=== PATIENT | male | born 1985 | race Caucasian/White ===

== ENCOUNTER 2023-05-27 08:18 | Emergency (ER) | payer OTHER, SELFPAY ==
[2023-05-27 08:35] VITALS: BP 142/87; PULSE 76; RESP 16; TEMP 36.6; O2SAT 100
[2023-05-27 08:36] VITALS: BP 142/87; PULSE 76; RESP 16; TEMP 36.6; O2SAT 100
--- NOTE | 2023-05-27 08:40 | ED.GENADULT ---
HPI - General Adult General Chief complaint: Extremity Injury, Lower Stated complaint: Right Foot Pain Source: patient Mode of arrival: ambulatory Limitations: no limitations History of Present Illness HPI narrative: 37 y/o male presented for c/o right 2nd toe infection. States it started with pain 2 days ago while walking in [place]. Pain increased last night, so he attempted to drain a pocket of fluid last night from the medial aspect of the toe. Used a sterilized safety pin to break the skin and squeezed out thick white drainage. Endorses more swelling to the base of the right 2nd toe today. Pain is significantly improved. Denies any other skin complaints or concerns. Related Data Allergies Allergy/AdvReac Type Severity Reaction Status Date / Time No Known Allergies Allergy Verified 05/27/23 08:36 Review of Systems Review of Systems: CONSTITUTIONAL: Denies body aches, fever, chills, or sweats. EYES: Denies visual changes, redness, or discharge. ENT: Denies rhinorrhea, congestion CARDIOVASCULAR: Denies chest pain, palpitations, or edema. RESPIRATORY: Denies cough or dyspnea. GASTROINTESTINAL: Denies abdominal pain, nausea, vomiting, or diarrhea. SKIN: right 2nd toe infection MUSCULOSKELETAL: Denies back pain, joint pain, or myalgia. NEUROLOGIC: Denies headache, numbness, tingling, or weakness. REPLACED BY [facility] Past Medical History Medical History (Updated 05/27/23 @ 08:58 by Roxanne Mayer, MATHEMATICIAN RESEARCH) No pertinent past medical history Comments At time of signature, I have reviewed and agree with nursing past medical, surgical, social and family history unless otherwise noted. Please see nursing chart for further information. There is no relevant family history pertinent to the presenting complaint Exam Narrative: GENERAL: Well-appearing HEAD: Normocephalic, atraumatic. EYES: conjunctivae clear, and EOMI. ENT: Mucous membranes moist. Oropharynx without edema, erythema or lesions. NECK: Supple. No lymphadenopathy CHEST: Clear to auscultation. HEART: Regular rate and rhythm. SKIN: Warm, dry. Right 2nd toe proximal phalanx medial aspect with mild swelling and erythema, puncture site at center; nontender; no active drainage, fluctuance, induration, or streaking. NEURO: Alert and oriented x3. Course Course Emergency Course: Patient is aware of diagnosis, understands and agrees to treatment plan. Anticipatory guidance given. Patient agrees to follow-up as directed and is aware of reasons to seek care at the emergency department. Portions of this record may have been created with voice recognition software Level of Care: Express Care Visit Vital Signs Vital signs: Vital Signs Temperature 98 F 05/27/23 08:35 Pulse Rate 76 05/27/23 08:35 Respiratory Rate 16 05/27/23 08:35 Blood Pressure 142/87 H 05/27/23 08:35 Pulse Oximetry 100 05/27/23 08:35 Oxygen Delivery Room Air 05/27/23 08:35 Temperature 98 F 05/27/23 08:36 Pulse Rate 76 05/27/23 08:36 Respiratory Rate 16 05/27/23 08:36 Blood Pressure 142/87 H 05/27/23 08:36 Pulse Oximetry 100 05/27/23 08:36 Oxygen Delivery Room Air 05/27/23 08:36 Reviewed Medical Decision Making MDM Narrative Medical decision making narrative: Discussed physical exam findings c/w abscess right 2nd toe. Pt drained it last night and reports improvement in pain. No indication for I&D at this time, site appears healing. Will send Rx abx. Advised supportive measures and signs/symptoms to go to the ER. Pt is appropriate for outpt treatment and f/u. Differential Diagnosis Differential Diagnosis: abscess, cellulitis, gout, abrasion, insect bite. Vital Signs Vital Signs: Vital Signs Temperature 98 F 05/27/23 08:35 Pulse Rate 76 05/27/23 08:35 Respiratory Rate 16 05/27/23 08:35 Blood Pressure 142/87 H 05/27/23 08:35 Pulse Oximetry 100 05/27/23 08:35 Oxygen Delivery Room Air 05/27/23 08:35 Temperature 98 F
== END 2023-05-27 09:00 | disposition home or self-care (01) ==
PROVIDERS: Emergency Provider Nurse Practitioner Family
DX: L02.611 Cutaneous abscess of right foot (principal)
CPT/HCPCS: 99203; G0463

== ENCOUNTER 2023-10-17 18:40 | Emergency (ER) | payer OTHER, SELFPAY ==
--- NOTE | 2023-10-17 18:56 | ED.GENADULT ---
HPI - General Adult General Chief complaint: Upper Respiratory Infection Stated complaint: Bodyache, Fever, Cough, Increased Heart Rate Source: patient, RN notes reviewed and old records reviewed Mode of arrival: ambulatory Limitations: no limitations History of Present Illness HPI narrative: 37-year-old male patient presents to [facility] with complaints cough, myalgia, fever this started today. Patient states taking Tylenol with relief. Patient denies chest pain, shortness of breath, weakness, dizziness. Related Data Home Medications Medication Instructions Recorded Confirmed No Home Medications 10/17/23 10/17/23 Allergies Allergy/AdvReac Type Severity Reaction Status Date / Time No Known Allergies Allergy Verified 05/27/23 08:36 Review of Systems Constitutional: Constitutional: Reports no additional constitutional complaints, Reports body ache(s), Reports chills, Denies fatigue, Reports fever(s) and Denies headache(s) Eyes: Eyes: Reports no additional eye complaints and Denies blurry vision ENT: Reports system reviewed and no additional complaints, except as documented, Denies vertigo, Denies dizziness, Denies ear discharge, Denies otalgia, Denies facial pain, Denies headache(s), Denies nasal congestion, Denies nasal discharge, Denies sinus pain, Denies sinus pressure and Denies sore throat Cardiovascular: Cardiovascular: Reports no additional cardiovascular complaints, Denies chest pain, Denies chest pain at rest, Denies rapid heart rate and Denies dyspnea Respiratory: Respiratory: Reports no additional respiratory complaints, Reports chest congestion, Reports cough, Denies pain on inspiration, Denies pain with cough and Denies dyspnea Gastrointestinal: Gastrointestinal: Denies abdominal pain, Denies diarrhea, Denies nausea and Denies vomiting Integumentary/Breasts: Skin/Breast: Denies rash Neurologic: Reports system reviewed and no additional complaints, except as documented, Denies vertigo, Denies dizziness and Denies headache(s) Endocrine: Endocrine: Denies fatigue PMFSH Past Medical History Medical History No pertinent past medical history Comments At the time of my signature, I reviewed and agree with the nursing past medical, surgical, social, and family history. There is no relevant family history pertinent to the patient complaint. Exam Const: General: cooperative, healthy appearing, no acute distress and well nourished Nutritional Appearance: well nourished Orientation/consciousness: patient oriented x3 Limitations: no limitations HENMT: Head: normal to inspection and normocephalic Ears: external ears normal, TM's normal bilaterally, mastoids normal and Abnormal EAC present Face/Nose/Sinus: normal facial exam Face and sinus: normal facial exam Mouth: Yes Normal oral and palatal mucosa present, Yes oropharynx normal and Yes moist mucous membranes Throat: posterior oropharynx normal, tonsils normal, uvula midline and no uvular edema Eyes: General: appearance normal, both eyes and all related structures Sclera: sclerae normal Pupils: Equal, round and reactive pupils present Resp: Effort & Inspection: normal respiratory effort, able to speak in complete sentences, no audible wheezes, no cough, no respiratory distress and no retractions Auscultation: clear to auscultation bilaterally, no crackles, no rales, no rhonchi and no wheezes Cardio: Rate: regular rate Rhythm: regular rhythm Skin: General skin exam: normal color and no rashes or lesions noted Neuro: General: patient oriented x3 Cranial nerves: Yes Equal, round and reactive pupils present Psych: Appearance: grossly normal Mental Status: mental status grossly normal Speech and movement: Normal speech and movement present Affect: normal affect Course Course Emergency Course: Patient is aware of diagnosis, understands and agrees to treatment plan.? Anticipatory guidance
[2023-10-17 18:57] VITALS: BP 138/71; PULSE 89; RESP 18; TEMP 36.9; O2SAT 96
== END 2023-10-17 19:21 | disposition home or self-care (01) ==
PROVIDERS: Emergency Provider Registered Nurse
DX: J06.9 Acute upper respiratory infection, unspecified (principal); Z20.822 Contact with and (suspected) exposure to COVID-19
CPT/HCPCS: 87426; 87804; 99213; G0463